=== PATIENT | female | born 1950 | race Caucasian/White ===

== ENCOUNTER 2017-05-11 00:44 | Observation (INO) | payer OTHER, MEDICARE ==
[~2017-05-11] VITALS: Ht 170.2 cm; Wt 98.9 kg
[~2017-05-11 00:44] MED LIST: ALTACE10 M1 PO; AMIODARONE200 MG PO; COUMADIN 5 MG TA5 MG PO; DOXAZOSIN2 MG PO; HYDRALAZINE10 MG PO; METOPROLOL SUCC50 M1 PO; SYNTHROID0.088 MG PO
--- NOTE | 2017-05-11 00:56 | ED NEURO DEFICIT/STROKE ---
History of Present Illness General Chief Complaint: General Adult Stated Complaint: BP HIGH, LEFT ARM AND FACE NUMBNESS Source: patient Exam Limitations: no limitations Vital Signs & Intake/Output Vital Signs & Intake/Output Vital Signs Date Time Temp Pulse Resp B/P B/P Pulse O2 O2 Flow FiO2 Mean Ox Delivery Rate 05/11 337 98.3 67 20 156/74 96 Room Air 05/11 0118 87 18 162/72 100 Room Air 05/11 0117 96.1 87 18 162/72 05/11 0100 96.1 100 18 220/74 100 Room Air Allergies Coded Allergies: No Known Allergies (05/11/17) Reconcile Medications Amiodarone Hydrochloride (Amiodarone) 200 MG TAB 0.5 TAB PO DAILY AFIB ( Reported) Doxazosin Mesylate 2 MG TABLET 1 TAB PO DAILY QHS (Reported) HYDRALAZINE HCL (Hydralazine) 10 MG TAB 1 TAB PO BID PRN HIGH BLOOD PRESSURE Levothyroxine Sodium (Synthroid) 0.088 MG TAB 0.088 MG PO DAILY AC THYROID ( Reported) Metoprolol Succinate (Metoprolol Succinate XL) 50 MG TAB.ER.24H 1 TAB PO DAILY RATE CONTROL (Reported) Ramipril (Altace) 10 MG CAPSULE 1 CAP PO DAILY HTN (Reported) Warfarin Sodium (Coumadin) 5 MG TAB 1 TAB PO DAILY ATRIAL FIB Triage Nurses Notes Reviewed? yes Onset: Abrupt Duration: hour(s): (few) Timing: single episode today Severity: mild, moderate Altered Sensations: LUE, LLE, left facial Associated Symptoms: numbness in legs/feet, back pain, palpitations, HPI: A 67-year-old female with history of hypertension, A. fib status post multiple cardioversions on Eliquis and flecanide who presents to the ER from home for chief complaint of palpitations which began a few hours ago while lying down to go to bed. She felt a pressure in her back and then a pressure in the front of her chest. She measured her BP to be 240/119 and took 2 25 mg of hydralazine. Patient then started to feel numbness and tingling in her left face arm and leg which concerned her and then she woke her to bring her to the ER. No blurred vision. Palpitations have gotten somewhat better but patient states that she feels shaky all over. Her last cardioversion was in 2017. Patient states that she's had a few episodes of A. fib since then. Most recently last into Thursday she felt that her rhythm went into A. fib and then converted back to sinus rhythm. She has been on multiple blood pressure Medications in the past but is currently only taking lisinopril. She has been following up with her senior design engineering specialist office in [place] but recently her senior design engineering specialist at group Dr. Maharaj. 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 Patient denies any current chest pain. She does feel slightly anxious. She has episodes of fluctuant and blood pressure in the past. Past History Travel History Traveled to [facility] past 21 day No Medical History Any Pertinent Medical History? see below for history Neurological: NONE EENT: NONE Cardiovascular: AFIB (STATUS POST CARDIOVERSION IN j), hypertension, hyperlipidemia Respiratory: NONE Gastrointestinal: NONE Hepatic: NONE Renal: NONE Musculoskeletal: NONE Psychiatric: NONE Endocrine: hypothyroidism Blood Disorders: NONE Cancer(s): NONE DRY MOLDER/Reproductive: NONE Surgical History Surgical History: appendectomy, cholecystectomy, , LEFT SHOULDER GROWTH REMOVAL, CARDIAC ABLATION X 2 Psychosocial History What is your primary language Qatari Tobacco Use: Never used ETOH Use: denies use Family History Hx Contributory? No Review of Systems Review of Systems Constitutional: Denies: chills, fever. EENTM: Reports: no symptoms. Respiratory: Denies: cough, short of breath, sputum production. Cardiovascular: Reports: palpitations. Denies: chest pain. GI: Reports: no symptoms. Genitourinary: Reports: no symptoms. Musculoskeletal: Reports: back pain. Skin: Reports: no symptoms. Neurological/Psychological: Reports: headache, numbness, tingling. Hematologic/Endocrine: Denies: bruising, bleeding, polyuria, polydipsia. Immunologic/Allergic: Denies: splenectomy. All Other Systems: Reviewed and Negative Physical Exam Physical Exam General Appearance: well developed/nourished, alert, awake, anxious, mild distress, moderate distress, obese Head: atraumatic, normal appearance Eyes: Bilateral: normal appearance, PERRL, EOMI. Ears, Nose, Throat: normal ENT inspection, hearing grossly normal Neck: normal inspection, supple, full range of motion Respiratory: normal breath sounds, chest non-tender, no respiratory distress Cardiovascular: regular rate/rhythm, normal peripheral pulses Peripheral Pulses: 3+ radial (R), 3+ radial (L) Gastrointestinal: normal bowel sounds, soft, non-tender Extremities: TRACE B/L PEDAL EDEMA Psychiatric: awake, alert, oriented x 3 Cranial Nerves: normal hearing, normal speech, PERRL Coordination/Gait: normal gait Motor/Sensory: no motor/sensory deficits Skin: intact, normal color, warm/dry Core Measures CVA/TIA Diagnosis: No Sepsis Present: No Sepsis Focused Exam Completed? No Progress Differential Diagnosis: intracranial Hem., stroke, HYPERTENSIVE URGENCY, HYPERTENSIVE CRISIS, AORTIC DISSECTION Plan of Care: Orders Procedure Date/time Status BASIC ELECTROLYTES PLUS BUN&CR 05/12 0500 Active Heart Healthy Diet 05/11 B Active CBC WITHOUT DIFFERENTIAL 05/11 06 Active Saline Lock 05/11 033 Active Pathway - chart 05/11 033 Active House Staff 05/11 0335 Active Patient Data 05/[address] in observation 05/11 0303 Active ED Holding Orders 05/11 0303 Active Vital Signs 05/11 0303 Active Code Status 05/11 0303 Active Telemetry/Assistant Professor Of Theater 05/11 0054 Active TROPONIN LEVEL 05/11 0054 Complete PARTIAL THROMBOPLASTIN TIME 05/11 0054 Complete PROTHROMBIN TIME 05/11 0054 Complete LACTIC ACID 05/11 0054 Complete COMPREHENSIVE METABOLIC PANEL 05/11 0054 Complete CBC WITHOUT DIFFERENTIAL 05/11 0054 Complete EKG 05/11 0046 Active VTE Mechanical Prophylaxis 05/11 UNK Active Hemoccult 05/11 UNK Active Current Medications Sig/Bear Start time Last Medication Dose Stop Time Status Admin Diltiazem HCl 20 MG ONCE ONE 05/11 011 CAN (Cardizem) 05/11 0116 Laboratory Tests 05/11/17 0106: Anion Gap 10, Estimated GFR > 60, BUN/Creatinine Ratio 18.9, Glucose 119 H, Lactic Acid 1.1, Calcium 9.4, Total Bilirubin 0.8, AST 20, ALT 33, Alkaline Phosphatase 61, Troponin I < 0.01, Total Protein 6.6, Albumin 4.0, Globulin 2.6, Albumin/Globulin Ratio 1.5, PT 13.2 H, INR 1.21 H, APTT 32, CBC w Diff NO MAN DIFF REQ, RBC 4.37, MCV 86.3, MCH 28.8, MCHC 33.4, RDW 12.8, MPV 9.3, Gran % 59.3, Lymphocytes % 29.4, Monocytes % 8.7, Eosinophils % 2.2, Basophils % 0.4, Absolute Granulocytes 4.0, Absolute Lymphocytes 2.0, Absolute Monocytes 0.6, Absolute Eosinophils 0.1, Absolute Basophils 0 3 AM IMPROVED AFTER IV CARDIZEM. CT NEGATIVE, FIRST TROPONIN NEGATIVE. PATIENT ON BID ELIQUIS. D/W DR BALLESTEROS, WILL PLACE ON TELEMETRY. Diagnostic Imaging: Viewed by Me: CT Scan. Discussed w/RAD: CT Scan. Radiology Impression: PATIENT: TONY HARRELL PRESENT AGE: 67 PATIENT ACCOUNT NO: [id number] : 49 LOCATION: ER ORDERING PHYSICIAN: Deborah Perez MD SERVICE DATE: 05/11/17 EXAM TYPE: CAT - CT HEAD WO IV CONTRAST EXAMINATION: CT HEAD WITHOUT CONTRAST CLINICAL INFORMATION: Headache, left-sided numbness, hypertensive COMPARISON: 05/09/2014 TECHNIQUE: Contiguous axial imaging was performed from the skull base to vertex without intravenous administration of contrast. DLP: 610.96 mGy-cm FINDINGS: There is no evidence of acute intracranial hemorrhage or territorial infarction. No abnormal mass effect or midline shift is seen. Gonzalez to white matter differentiation is well preserved. No extra-axial fluid collections are identified. The ventricles are normal in size. There is a redemonstrated small calcification along the lateral aspect of the right middle temporal lobe, which may reflect an exostosis. The osseous structures and soft tissues are normal. The mastoid air cells and visualized portions of the paranasal sinuses are well aerated. IMPRESSION: No acute intracranial pathology. DICTATED BY: Amarjit Herrera MD DATE/TIME DICTATED:05/11/17242 WIG SALES CONSULTANT:BENITO DATE/TIME TRANSCRIBED:05/11/17242 CONFIDENTIAL, DO NOT COPY WITHOUT APPROPRIATE AUTHORIZATION. <Electronically signed in Other Vendor System> SIGNED BY: Amarjit Herrera MD 05/11/17249, PATIENT: TONY HARRELL PRESENT AGE: 67 PATIENT ACCOUNT NO: [id number] : 49 LOCATION: ER ORDERING PHYSICIAN: Deborah Perez MD SERVICE DATE: 05/11/17 EXAM TYPE: CAT - CTA CHEST-AORTIC DISSECTION EXAMINATION: CT ANGIOGRAM OF THE CHEST INDICATION: Back pain, severe hypertension COMPARISON: None TECHNIQUE: Initial noncontrast CT of the chest was performed. 93 mL Optiray 320 IV contrast was then administered. Multidetector helical imaging was performed through the chest per CTA protocol. Coronal, sagittal, and MIP images of the chest were created. DLP: 980 mGy-cm FINDINGS: No evidence of aortic intramural hematoma on the precontrast series. Following contrast administration, there is no evidence of aortic dissection. The thoracic aorta appears normal in caliber. There is mild scattered calcification along the aorta. No regions of pulmonary consolidation bilaterally. There is minimal bibasilar atelectasis. Tiny nodules in the right upper lobe on image 70/481 and along the right major fissure on image 181/481 appear calcified, favoring granulomas. No pneumothorax or pleural effusion. The visualized thyroid gland is grossly unremarkable. There are subcentimeter mediastinal lymph nodes within the range of normal variation. Cardiac size is at the upper limits of normal. No pericardial effusion. The main pulmonary artery appears dilated, measuring approximately 3.4 cm in diameter. No central pulmonary embolus is seen. No axillary lymphadenopathy is present. Patient is status post cholecystectomy. No acute findings are identified in the visualized upper abdomen. Degenerative changes are noted in the spine. IMPRESSION: 1. No evidence of aortic dissection. 2. Dilated main pulmonary artery, suggesting pulmonary artery hypertension. DICTATED BY: Amarjit Herrera MD DATE/TIME DICTATED:05/11/17246 WIG SALES CONSULTANT:BENITO DATE/TIME TRANSCRIBED:246 CONFIDENTIAL, DO NOT COPY WITHOUT APPROPRIATE AUTHORIZATION. < Electronically signed in Other Vendor System> SIGNED BY: Amarjit Herrera MD 05/11/17 0300 Initial ED EKG: NSR, LVH Rhythm Strip: normal sinus rhythm Departure Departure Time of Disposition: 301 Disposition: STILL A PATIENT Condition: Stable Clinical Impression Primary Impression: Hypertensive urgency Secondary Impressions: Chest pain at rest Referrals: Angela CASAREZ,Isabel Savage (PCP/Family) Departure Forms: Customer Survey General Discharge Information Observation Note Spoke With: Blue Ballesteros MD Physician Advisor Notified: JULIO DÍAZ DO Place Patient In: Non-ED OBS Care Area Rationale for Observation: My rational for observation is as follows [TELE MONITOR, SERIAL EKG/TROPONIN, CARDIOLOGY EVALUATION, ECHOCARDIOGRAM, BLOOD PRESSURE CONTROL. Critical Care Note Critical Care Note Critical Care Time: 30-74 min
[2017-05-11 01:22] LABS: ABSOLUTE BASOPHIL COUNT 0 /CUMM (0.0-0.2); ABSOLUTE EOSINOPHIL COUNT 0.1 /CUMM (0.0-0.7); ABSOLUTE MONOCYTE COUNT 0.6 /CUMM (0.10-0.60); BASOPHIL % 0.4 % (0.0-2.0); EOSINOPHIL % 2.2 % (0-5); GRANULOCYTE % 59.3 % (42.2-75.2); HEMATOCRIT 37.7 % (37-47); MEAN CORPUSCULAR HGB 28.8 PG (27.0-31.0); MEAN CORPUSCULAR HGB CONC 33.4 G/DL (33.0-37.0); MEAN CORPUSCULAR VOLUME 86.3 FL (81.0-99.0); MEAN PLATELET VOLUME 9.3 FL (7.4-10.4); PLATELET COUNT 141 /CUMM (130-400); RBC DISTRIBUTION WIDTH 12.8 % (11.5-14.5); RED BLOOD CELL CT 4.37 /CUMM (4.20-5.40); WHITE BLOOD CELL COUNT 6.7 /CUMM (4.8-10.8)
[2017-05-11 01:28] LABS: PT 13.2 SEC (9.4-12.5); PTT 32 SEC (25-37)
--- NOTE | 2017-05-11 02:50 | CT SCAN REPORT ---
EXAMINATION: CT HEAD WITHOUT CONTRAST CLINICAL INFORMATION: Headache, left-sided numbness, hypertensive COMPARISON: 05/09/2014 TECHNIQUE: Contiguous axial imaging was performed from the skull base to vertex without intravenous administration of contrast. DLP: 610.96 mGy-cm FINDINGS: There is no evidence of acute intracranial hemorrhage or territorial infarction. No abnormal mass effect or midline shift is seen. Gonzalez to white matter differentiation is well preserved. No extra-axial fluid collections are identified. The ventricles are normal in size. There is a redemonstrated small calcification along the lateral aspect of the right middle temporal lobe, which may reflect an exostosis. The osseous structures and soft tissues are normal. The mastoid air cells and visualized portions of the paranasal sinuses are well aerated. IMPRESSION: No acute intracranial pathology.
--- NOTE | 2017-05-11 03:00 | CT SCAN REPORT ---
EXAMINATION: CT ANGIOGRAM OF THE CHEST INDICATION: Back pain, severe hypertension COMPARISON: None TECHNIQUE: Initial noncontrast CT of the chest was performed. 93 mL Optiray 320 IV contrast was then administered. Multidetector helical imaging was performed through the chest per CTA protocol. Coronal, sagittal, and MIP images of the chest were created. DLP: 980 mGy-cm FINDINGS: No evidence of aortic intramural hematoma on the precontrast series. Following contrast administration, there is no evidence of aortic dissection. The thoracic aorta appears normal in caliber. There is mild scattered calcification along the aorta. No regions of pulmonary consolidation bilaterally. There is minimal bibasilar atelectasis. Tiny nodules in the right upper lobe on image 70/481 and along the right major fissure on image 181/481 appear calcified, favoring granulomas. No pneumothorax or pleural effusion. The visualized thyroid gland is grossly unremarkable. There are subcentimeter mediastinal lymph nodes within the range of normal variation. Cardiac size is at the upper limits of normal. No pericardial effusion. The main pulmonary artery appears dilated, measuring approximately 3.4 cm in diameter. No central pulmonary embolus is seen. No axillary lymphadenopathy is present. Patient is status post cholecystectomy. No acute findings are identified in the visualized upper abdomen. Degenerative changes are noted in the spine. IMPRESSION: 1. No evidence of aortic dissection. 2. Dilated main pulmonary artery, suggesting pulmonary artery hypertension.
--- NOTE | 2017-05-11 03:32 | History & Physical ---
Ben Velasco MD 05/11/17 0331: General Information and HPI MD Statement: I have seen and personally examined TONY HARRELL and documented this H&P. The patient is a 67 year old F who presented with a patient stated chief complaint of [left sided numbness and tingling]. Source of Information: patient, family Exam Limitations: no limitations History of Present Illness: Patient is a 67 y/o female with PMH of HTN, longstanding history of atrial fibrillation on eliquis and flecainide s/p two ablations (last in May 2016), s /p multiple cardioversions (3 between May 2016 to September 2016), vertigo (not on any medications) presenting this admission with left sided numbness and tingling. Patient reports that 4 days prior to admission at approximately 2:57AM she went into atrial fibrillation. Prior to that she has been in NSR since October 2016. Patient states that she has not been feeling well since then and has been monitoring her blood pressure which has been elevated. Patient states at that time she took metoprolol (she is not on this medication currently however had some extra pills from her previous prescription) due to elevated heart rate and blood pressure. Patient reports that 2 days prior to admission she converted back into normal sinus rhythm at which point her blood pressure fluctuated between 103/63 to 200s over 90s. Patient reports that she took hydralazine and doxazosin as needed as well as her standing dose of lisinopril. Patient reports that she has previously been on hydralazine and doxazosin and has extra pills from her previous prescriptions. Patient reports that on the evening of admission she had laid down in bed and started having palpitations. Reports she also started experiencing a constant burning sensation in the center of her chest that radiated to her back and left arm. Reports the symptoms lasted approximately 30 minutes. Patient denied any chest pain or pressure, shortness of breath, diaphoresis, nausea/vomiting. Patient took her blood pressure and reports that it was 249/119. Patient states that she took 50 mg of hydralazine. After this she reports having left-sided numbness and tingling that traveled up to her neck from her chest and down her left arm and leg. Patient reported feeling as though she was slurring her speech due to numbness around the left side of her mouth and tongue. Also reports dizziness, weakness, difficulty walking, blurry vision and per she was shaking. Over the past few days she reports having headache and sinus pressure. Patient states that she recently, approximately 2 weeks prior, had an upper respiratory infection with cough and congestion which resolved without antibiotics. Patient reports that she has previously been hospitalized at [facility] for possible TIA and hypertension approximately 5 years prior with similar symptoms. Patient notes that at that time she also was treated for Lyme disease. Patient has an extensive cardiac history with multiple ablations. The last ablation was done at [facility] in May 2016. Patient reports that between May and September 2016 she required 3 cardioversions. Reports that she has been in normal sinus rhythm since October 2016 up until the past few days prior to this admission. Patient is currently taking flecainide and Eliquis. Patient states her cementer hand is Dr. Maharaj at [facility] who no longer works at the practice and Dr. Guzman is her carpenters. Past medical history as above Past surgical history: Appendectomy, 3, cholecystectomy, right shoulder mass resection Social history: Patient lives with her , denies any recent sick contacts, denies alcohol, tobacco, or illicit drug use Family history: Father suddenly at the age of 63 patient is unsure if it was due to an ND, mother age 67 of stomach cancer, brother has a history of atrial fibrillation Medications: Eliquis, flecainide, lisinopril, levothyroxine Allergies: Denies any allergies to any medications Allergies/Medications Allergies: Coded Allergies: No Known Allergies (05/11/17) Past History Travel History Traveled to [place] past 21 day No Medical History Neurological: NONE EENT: NONE Cardiovascular: AFIB (STATUS POST CARDIOVERSION IN j), hypertension, hyperlipidemia Respiratory: NONE Gastrointestinal: NONE Hepatic: NONE Renal: NONE Musculoskeletal: NONE Psychiatric: NONE Endocrine: hypothyroidism Blood Disorders: NONE Cancer(s): NONE 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 EENTM: Reports: see HPI. Cardiovascular: Reports: see HPI. Respiratory: Denies: see HPI. GI: Reports: no symptoms. Genitourinary: Reports: no symptoms. Musculoskeletal: Reports: no symptoms. Skin: Reports: no symptoms. Neurological/Psychological: Reports: anxiety. Hematologic/Endocrine: Reports: no symptoms. All Other Systems: Reviewed and Negative Exam & Diagnostic Data Last 24 Hrs of Vital Signs/I&O Vital Signs Date Time Temp Pulse Resp B/P B/P Pulse O2 O2 Flow FiO2 Mean Ox Delivery Rate 03 0750 98 Room Air 03/05 0740 98.0 76 18 157/71 98 Room Air 03/05 0703 98.0 76 18 157/71 98 Room Air 03/05 0540 97.6 68 18 152/71 96 Room Air 03/05 0338 98.3 67 20 156/74 96 Room Air 03/05 0118 87 18 162/72 100 Room Air 03/05 0117 96.1 87 18 162/72 03/05 0100 96.1 100 18 220/74 100 Room Air Intake & Output 03/ 1600 03/05 0800 03/05 0000 Intake Total 880 Output Total Balance 880 Intake, Oral 880 Patient 218 lb Weight Weight Reported by Patient Measurement Method Physical Exam General Appearance Alert, Oriented X3, Cooperative, No Acute Distress Skin No Rashes Skin Temp/Moisture Exam: Warm/Dry HEENT Atraumatic, PERRLA, EOMI, Mucous Membr. moist/pink Cardiovascular Regular Rate, Normal S1, Normal S2 Lungs Clear to Auscultation, Normal Air Movement Abdomen Normal Bowel Sounds, Soft, No Tenderness Neurological Normal Speech, Strength at 5/5 X4 Ext, Sensation Intact, Cranial Nerves 3-12 NL, Reflexes 2+ Extremities No Clubbing, No Cyanosis, No Edema, Normal Pulses, No Tenderness/ Swelling Vascular Normal Pulses, Pulses Symmetrical Last 24 Hrs of Labs/Andres: Laboratory Tests 05/11/17 0106: Anion Gap 10, Estimated GFR > 60, BUN/Creatinine Ratio 18.9, Glucose 119 H, Lactic Acid 1.1, Calcium 9.4, Total Bilirubin 0.8, AST 20, ALT 33, Alkaline Phosphatase 61, Troponin I < 0.01, Total Protein 6.6, Albumin 4.0, Globulin 2.6, Albumin/Globulin Ratio 1.5, PT 13.2 H, INR 1.21 H, APTT 32, CBC w Diff NO MAN DIFF REQ, RBC 4.37, MCV 86.3, MCH 28.8, MCHC 33.4, RDW 12.8, MPV 9.3, Gran % 59.3, Lymphocytes % 29.4, Monocytes % 8.7, Eosinophils % 2.2, Basophils % 0.4, Absolute Granulocytes 4.0, Absolute Lymphocytes 2.0, Absolute Monocytes 0.6, Absolute Eosinophils 0.1, Absolute Basophils 0 Diagnostic Data EKG Results Sinus rhythm, heart rate 97, first-degree AV block Other Results CTA: 1. No evidence of aortic dissection. 2. Dilated main pulmonary artery, suggesting pulmonary artery hypertension. Head CT: No acute intracranial pathology. Assessment/Plan Assessment: Patient is a 67 y/o female with PMH of HTN, longstanding history of atrial fibrillation on eliquis and flecainide s/p two ablations (last in May 2016), s /p multiple cardioversions (3 between May 2016 to September 2016), vertigo (not on any medications) presenting this admission with left sided numbness and tingling left arm, left leg and left side of her face and tongue with slurred speech. Patient in the ED received 1 mg 1, Cardizem 10 mg IV 1 Assessment and plan: Patient is a 59-year-old female with long-standing history of atrial fibrillation requiring multiple cardioversions and ablations currently on antiarrhythmic and anticoagulation presenting this admission with hypertensive urgency versus emergency. Patient experienced burning chest pain which lasted approximately 30 minutes at which time she had taken her blood pressure which was 240/118. Patient had taken hydralazine after which she started experiencing neurological symptoms with left sided numbness and slurred speech which resolved prior to her admission. It is unclear if patient symptoms are secondary to the antihypertensive medication or hypertensive crisis causing an acute ischemic stroke. Patient had a CT which ruled out hemorrhagic stroke. Patient also has a history of atrial fibrillation and recently converted back to atrial fibrillation from normal sinus rhythm which may have contributed to her symptoms however patient is on anticoagulation and has converted back to normal sinus rhythm 2 days prior to admission. Patient received IV diltiazem 10 mg and lorazepam 1 mg in the ED with decrease in blood pressure from 220/74 to 162/72. Patient during interview had resolution of her symptoms except for a headache. Problems: 1. Hypertensive crisis 2. TIA, rule out stroke 3. Atrial fibrillation on Eliquis and flecainide 4. History of hypothyroidism Plan: Observe on telemetry Consult cardiology Consult neurology Carotid Doppler Echo Neuro checks every 4 hours Monitor blood pressure and vitals Serial EKG and troponin Aspirin 325 mg 1 Continue Eliquis 5 mg twice a day Continue flecainide 150 mg twice a day Continue lisinopril 20 mg twice a day Consider adding metoprolol to control blood pressure and heart rate Atorvastatin 80 mg daily Continue levothyroxine 88 g daily Tylenol PRN for headache CBC and BEP in a.m. PT/OT consult Speech and swallow evaluation Obtain records from [facility] in [place] (Humanities And Languages Professor: Dr. Maharaj, Matcher Offbearer: Dr. Guzman) Code: Full code DVT prophylaxis: On Eliquis Diet: Heart healthy As Ranked By This Provider Problem List: 1. Hypertensive urgency 2. Supratherapeutic INR Core Measures/Misc (11/23) Acute Coronary Syndrome ACS Diagnosis: No Congestive Heart Failure Congestive Heart Failure Diagnosis No Cerebrovascular Accident CVA/TIA Diagnosis: Yes NIH Stroke Scale: Total 0 Date Last Known Well: 05/10/17 Time Last Known Well: 2199 Symptom Start Date: 05/10/17 Symptom Start Time: 2199 Reason tPA not ordered Medical Contraindication (symptoms resolved) Swallow Evaluation Pass Current/Past Hx AFib/AFlutter Yes VTE (View Protocol) VTE Risk Factors Age>40 No Mechanical VTE Prophylaxis d/t N/A MechProphylax Ordered No VTE Pharm Prophylaxis d/t NA PharmProphylax ordered Sepsis (View protocol) Sepsis Present: No Collin CASAREZ, [facility] 05/11/17 0614: General Information and HPI Allergies/Medications Home Med list Apixaban (Eliquis) 5 MG TABLET 1 TAB PO BID A.FIB (Reported) Doxazosin Mesylate 4 MG TABLET 1 TAB PO DAILY PRN HIGH BP (Reported) Flecainide Acetate 150 MG TABLET 1 TAB PO BID A. FIB (Reported) Hydralazine HCl 50 MG TABLET 1 TAB PO TID PRN BP (Reported) Levothyroxine Sodium 88 MCG TABLET 1 TAB PO DAILY HYPOTHYROIDISIM (Reported) Lisinopril 20 MG TABLET 1 TAB PO BID HTN (Reported) Attending MD Review Statement Attending Statement Attending MD Statement: examined this patient, discuss w/resident/PA/VC++ DEVELOPER, agreed w/resident/PA/VC++ DEVELOPER, discussed with family, reviewed images, amended to note Attending Assessment/Plan: 67 yo F with h/o HTN, Afib s/p ablation and multiple cardioversions, on eliquis and flecainide, TIA, Lyme disease, anxiety, is here for evaluation of left sided numbness, tingling of face and tongue. Patient reports her symptoms started 5 days ago with severe palpitations (as if her heart was to come out of her chest) and she reports that she knew she went into Afib. She took metoprolol and felt better once she converted to SR. Over the next 2 days, BP remained uncontrolled and she took hydralazine which she uses as needed for hypertension. She noted frontal and periorbital pressure/ pounding headache with dizziness and attributed it to her vertigo. Today, as she was lying down to go to bed, she felt palpitations, checked her BP which was 240 /119, took 2 tabs of hydralazine. She then felt a burning sensation in her chest , left arm radiating to the back, followed by a feeling of tingling/ numbness to her left face, tongue, lip, arm and leg associated with difficulty walking. She also reports transient blurring of vision. She denies chest pain/ pressure, dyspnea, lightheadedness, nausea or diaphoresis. Of note, patient had a recent URI 2 weeks back and used OTC/ homeopathic medicines with some relief. She followed Dr. Bakari Maharaj ([facility]) and Dr. Guzman ([facility]). Dr. Maharaj is not with [facility] anymore, so patient is yet to see her new cementer hand. Patient has had a stress test 2 yrs ago, was apparently normal. Patient uses doxazosin and hydralazine as needed for HTN, and metoprolol as needed for palpitations. In the ER, patient received IV cardizem with improvement in her BP 220/74 --> 162/72. Her symptoms have improved. Vitals: afebrile, HR 68, BP 152/71, sats 96% RA. Exam as above. Labs unremarkable, troponin negative. EKG: sinus rhythm, first degree AV block, LAD, LVH, ?peaked T waves V3-6 (new). CTA chest: no aortic dissection, dilated main pulmonary artery suggesting pulmonary artery hypertension. Lung granulomas. Head CT: neg. Assessment and plan: 1. Hypertensive crisis 2. Transient ischemic attack 3. History of Afib with paroxysms of rapid ventricular response - 23 hour observation on Telemetry - Neurochecks Q4 - Goal SBP ~ 150-160's - Resume lisinopril and flecainide - ?consider addition of metoprolol on daily basis after discussion with cardiology to prevent paroxysms of RVR - Serial EKG and troponin to rule out ACS - Obtain Echo and Cardio consult - Give aspirin and high dose statin - Obtain carotid dopplers - Neuro consult - Check TSH, free T4, HbA1c, lipid panel - Lorazepam as needed for anxiety - PT/OT/ speech/ swallow eval - Obtain records from patient's cementer hand at [facility] [place] DVT ppx Eliquis. Full code. Observation Initial Note - I have personally examined TONY HARRELL on 05/11/17 at 0617. The disposition of TONY HARRELL is uncertain at this time and before a determination can be made, she requires a period of observation for the following reasons [Hypertensive crisis] Angel Cutler 05/11/17 0902: Resident Review Statement Resident Statement: examined this patient, discussed with network intern, agreed with network intern, discussed with family, reviewed EMR data (avail), discussed with nursing , reviewed images Other Findings: is a 67 yo lady with PMHx of A. fib s/p 2 on Eliquis presented to ED with a c/o elevated BP, chest pressure, (burning sensation) radiating to the back, Palpitation and transient episode of slureed speech and left arm and face numbness and tingling started last night, at home her BP was up to 200's/100's, at our ED the highest Bp was 220/74, period of slurred speech and numbness last for about 20 minutes and completely resolved. No neurodeficit on examination, aortic dissection, PE ruled out with CTA. Will admitt the patient under observation to tlemetry floor for TIA, hypertensive urgency, neurochecks, carotid doppler, echocardioram, neuro consult, cardiology consult, Aspirin, statin, will hold on BP medication except lisinopril will start from am, TSH, lipid panel, pt/ot, swallow eval, continue Eliquis for A.fib and DVT ppx, full code.
[2017-05-11] MEDS ORDERED: FLECAINIDE ACE150 M1 PO (04:03)
[2017-05-11] MEDS ORDERED: LISINOPRIL20 M1 PO (04:06)
[2017-05-11] MEDS ORDERED: ELIQUIS5 M1 PO (04:06)
[2017-05-11] MEDS ORDERED: LEVOTHYROXINE88 MCG PO (04:07)
[2017-05-11] MEDS ORDERED: DOXAZOSIN MESYLA4 M1 PO (04:11)
[2017-05-11] MEDS ORDERED: HYDRALAZINE HCL50 M1 PO (04:12)
[2017-05-11 06:16] LABS: ABSOLUTE BASOPHIL COUNT 0 /CUMM (0.0-0.2); ABSOLUTE EOSINOPHIL COUNT 0.1 /CUMM (0.0-0.7); ABSOLUTE GRANULOCYTE CT 4.9 /CUMM (1.4-6.5); ABSOLUTE LYMPH COUNT 1.3 /CUMM (1.2-3.4); ABSOLUTE MONOCYTE COUNT 0.5 /CUMM (0.10-0.60); BASOPHIL % 0.7 % (0.0-2.0); EOSINOPHIL % 0.8 % (0-5); GRANULOCYTE % 71.9 % (42.2-75.2); HEMATOCRIT 35.1 % (37-47); MEAN CORPUSCULAR HGB 29.4 PG (27.0-31.0); MEAN CORPUSCULAR HGB CONC 33.8 G/DL (33.0-37.0); MEAN CORPUSCULAR VOLUME 86.9 FL (81.0-99.0); MEAN PLATELET VOLUME 9.1 FL (7.4-10.4); PLATELET COUNT 138 /CUMM (130-400); RBC DISTRIBUTION WIDTH 12.9 % (11.5-14.5); RED BLOOD CELL CT 4.04 /CUMM (4.20-5.40); WHITE BLOOD CELL COUNT 6.9 /CUMM (4.8-10.8)
--- NOTE | 2017-05-11 07:28 | PN-Observation ---
Becky CASAREZ,[facility] 05/11/17 0720: Observation Note Observation Note _ I have personally examined TONY HARRELL. her disposition is uncertain at this time. Before a determination can be made, she requires continued observation for the following reasons [Left facial numbness]. Assessment/Plan Medical Assessment: The patient is a 67-year-old woman with PMH of HTN, longstanding history of atrial fibrillation on eliquis and flecainide s/p two ablations (last in May 2016), s/p multiple cardioversions (3 between May 2016 to September 2016), vertigo (not on any medications) who presented with intermittent palpitations and frontal headaches of 4 days duration with severely elevated blood pressure and left sided weakness, numbness, tingling and difficulty ambulation on the day of presentation. She is currently being evaluated for hypertensive urgency and suspected TIA. Her blood pressure was elevated to 220/74 mmHg on presentation and she received IV Cardizem 10 mg push with improvement in her blood pressure. At the present time she does not have any focal neurologic deficits and has no complaints. Her head CT was negative for any intracranial lesion or bleed and she had a CTA of her chest which did not show any aortic dissection. An echocardiogram and carotid ultrasound of her neck are pending at this time and she will be evaluated by a neurologist and gluer and wedger. The patient states that she is compliant on her medications including apixaban, lisinopril and flecainide. Her blood pressure is now better controlled and is 150/90 mmhg. If further workup and evaluation is negative, patient can be discharged to follow-up with gluer and wedger later today. Problem 1. Hypertensive crisis * Check 1 more EKG and troponin today * Cardiology consultation * Echocardiogram today * Continue by mouth lisinopril 20 mg twice a day * Can consider adding by mouth metoprolol for additional blood pressure control and to have better control paroxysms of rapid ventricular rate if okay by cardiology * Monitor blood pressure closely 2. TIA, rule out stroke * Patient's symptoms could be as a result of elevated blood pressure or a TIA or stroke * Continue neuro checks with NIH stroke scale every 4 hours * Will obtain carotid ultrasound * Neurology consult sent * Lipid panel this morning within acceptable limits * Follow-up hemoglobin A1c * Patient passed bedside swallow eval and has no dysphagia * No need for formal speech and swallow evaluation-order has been cancelled 3. Atrial fibrillation on Eliquis and flecainide * Continue anticoagulation with apixaban * Continue by mouth flecainide * Continue telemetry monitoring * Awaiting cardiology evaluation for possibly adding metoprolol for additional rate control for intermittent palpitations. 4. History of hypothyroidism * TSH is elevated at 4.78 * We'll increase Synthroid dose to 0.1 mg daily DVT prophylaxis: apixaban CODE STATUS: Full code Problem List: 1. Hypertensive urgency 2. Hypertensive crisis 3. Hypertension DVT/Prophylaxis: pharmacological Subjective Follow-up For: 1. Hypertensive urgency 2. Transient Left facial and upper limb numbness concerning for TIA Complaints: no complaints Subjective: Patient has no complaints this morning. She states that she no longer has palpitations at this time and denies chest pain, shortness of breath, lightheadedness, headaches, blurring of vision or numbness or weakness of any extremity. Review of Systems Constitutional: Denies: chills, fever, malaise. EENTM: Denies: blurred vision, double vision, visual changes, eye pain. Cardiovascular: Denies: chest pain, edema, palpitations, syncope. Respiratory: Denies: cough, short of breath. Gastrointestinal: Denies: abdominal pain, constipation, nausea, vomiting. Genitourinary: Denies: dysuria, frequency. Musculoskeletal: Denies: back pain, joint pain. Objective Last 24 Hrs of Vital Signs/I&O Vital Signs Date Time Temp Pulse Resp B/P B/P Pulse O2 O2 Flow FiO2 Mean Ox Delivery Rate / 0948 97.1 70 18 167/73 03/05 0750 98 Room Air 03/05 0740 98.0 76 18 157/71 98 Room Air 03/05 0703 98.0 76 18 157/71 98 Room Air 03/05 0540 97.6 68 18 152/71 96 Room Air 03/05 0338 98.3 67 20 156/74 96 Room Air 03/05 0118 87 18 162/72 100 Room Air 03/05 0117 96.1 87 18 162/72 03/05 0100 96.1 100 18 220/74 100 Room Air Intake & Output 03/05 1600 03/05 0800 03/05 0000 Intake Total 880 Output Total Balance 880 Intake, Oral 880 Patient 218 lb Weight Weight Reported by Patient Measurement Method Physical Exam General Appearance: Alert, Oriented X3, Cooperative, No Acute Distress Skin: No Rashes Skin Temp/Moisture Exam: Warm/Dry Sepsis Skin Exam (color): Normal for Ethnicity HEENT: Atraumatic, PERRLA, EOMI, Mucous Membr. moist/pink Neck: Supple, No JVD, No thryomegaly, +2 Carotid Pulse wo Bruit Lymphatic: Cervical nl Cardiovascular: Regular Rate, Normal S1, Normal S2, No Murmurs Lungs: Clear to Auscultation, Normal Air Movement Abdomen: Normal Bowel Sounds, Soft, No Tenderness, No Hepatospenomegaly, No Masses Neurological: Normal Speech, Strength at 5/5 X4 Ext, Normal Tone, Cranial Nerves 3-12 NL Extremities: No Edema, Normal Pulses Vascular: Normal Pulses, Pulses Symmetrical Current Medications: Current Medications Sig/Bear Start time Last Medication Dose Route Stop Time Status Admin Acetaminophen 0 .STK-MED ONE 05/11 0700 DC PO Acetaminophen 650 MG ONCE ONE 05/11 0645 DC 05/11 PO 05/11 0646 0703 Apixaban 5 MG BID 05/11 1000 AC 05/11 PO 0948 Aspirin 0 .STK-MED ONE 05/11 0540 DC PO Aspirin 325 MG ONCE ONE 05/11 0500 DC / PO 05/11 0501 0539 Atorvastatin Calcium 80 MG 1700 05/11 1700 AC PO Diltiazem HCl 10 MG ONCE ONE 05/11 0130 DC 05/11 IV PUSH 05/11 0131 0117 Diltiazem HCl 0 .STK-MED ONE 05/11 0116 DC .ROUTE Diltiazem HCl 20 MG ONCE ONE 05/11 0115 CAN IV 05/11 0116 Flecainide Acetate 150 MG BID 05/11 1000 AC 05/11 PO 0948 Levothyroxine Sodium 0.088 MG DAILY AC 05/11 0645 AC / PO 0703 Lisinopril 20 MG BID 05/11 1000 AC 05/11 PO 0948 Lorazepam 0 .STK-MED ONE 05/11 0117 DC .ROUTE Lorazepam 1 MG ONCE ONE 05/11 0115 DC / IV 05/11 0116 0117 Last 24 Hrs of Labs/Mics: Laboratory Tests 05/11/17 0547: Magnesium 2.0, Troponin I 0.10, Triglycerides 53, Cholesterol 168, LDL Cholesterol, Calc 94, HDL Cholesterol 64 H, Cholesterol/HDL Ratio 3, TSH 4.780 H, CBC w Diff NO MAN DIFF REQ, RBC 4.04 L, MCV 86.9, MCH 29.4, MCHC 33.8, RDW 12.9, MPV 9.1, Gran % 71.9, Lymphocytes % 19.1 L, Monocytes % 7.5, Eosinophils % 0.8, Basophils % 0.7, Absolute Granulocytes 4.9, Absolute Lymphocytes 1.3, Absolute Monocytes 0.5, Absolute Eosinophils 0.1, Absolute Basophils 0 05/11/17 0354: Lactic Acid Cancelled 05/11/17 0106: Anion Gap 10, Estimated GFR > 60, BUN/Creatinine Ratio 18.9, Glucose 119 H, Lactic Acid 1.1, Calcium 9.4, Total Bilirubin 0.8, AST 20, ALT 33, Alkaline Phosphatase 61, Troponin I < 0.01, Total Protein 6.6, Albumin 4.0, Globulin 2.6, Albumin/Globulin Ratio 1.5, PT 13.2 H, INR 1.21 H, APTT 32, CBC w Diff NO MAN DIFF REQ, RBC 4.37, MCV 86.3, MCH 28.8, MCHC 33.4, RDW 12.8, MPV 9.3, Gran % 59.3, Lymphocytes % 29.4, Monocytes % 8.7, Eosinophils % 2.2, Basophils % 0.4, Absolute Granulocytes 4.0, Absolute Lymphocytes 2.0, Absolute Monocytes 0.6, Absolute Eosinophils 0.1, Absolute Basophils 0 Nevin CASAREZ,[facility] 05/11/17 1422: Observation Note Observation Note _ I have personally examined TONY HARRELL. her disposition is uncertain at this time. Before a determination can be made, she requires continued observation for the following reasons -patient requires further monitoring of her heart rate and blood pressure to ensure adequate control.. Patient seen and examined. Resting comfortably not in any acute distress. Blood pressure has improved compared to presentation. Patient continues to complain of palpitations in the mouth. Denies chest pain. Denies shortness of breath. Denies headache or blurry vision. She reports that since her last ablation in October she has been doing well until a few days ago when she noted palpitations and felt that she had gone back into atrial fibrillation. She reports compliance with her medications at home. In addition to her lisinopril which he takes regularly, she is also on hydralazine and doxycycline as needed for elevated blood pressures. She is currently only on flecainide in addition to her anticoagulation therapy for her atrial fibrillation. She reports being on a beta-ender in the past but developed bradycardia with heart rates in the 40s following her cardiac ablation according to the patient. She has been taking a beta-ender therapy since then. On examination she has no focal neurologic deficit. Heart sounds are regular. Lungs are clear to auscultation bilaterally. She has no peripheral edema. Recommendations: -Continue lisinopril for blood pressure control. -Follow-up with the cardiology service regarding medications to maintain patient on for additional blood pressure control and possibly rate control as well. -Continue anticoagulation therapy. -TSH is mildly elevated suggesting inadequate dosing of levothyroxine. Increase dose to 100 mcg daily. Patient to follow-up with her primary care provider for repeat TSH in 4-6 weeks. -She has no neurologic deficits at present. No need at this time for further neurologic imaging.
[2017-05-11 07:40] VITALS: BP 157/71
--- NOTE | 2017-05-11 11:37 | ULTRASOUND REPORT ---
EXAMINATION: US DUPLEX CAROTID AND VERTEBRAL CLINICAL INFORMATION: 67-year-old female with TIA. COMPARISON: None TECHNIQUE: Real-time ultrasound and Doppler techniques (integrating B-mode 2D vascular images, Doppler spectral analysis and color flow Doppler imaging) were utilized to interrogate the extracranial carotid and vertebral arteries bilaterally. The degree of stenosis determined by criteria similar to NASCET. FINDINGS: No plaque is seen at the carotid bifurcations or within the internal carotid arteries. All velocities are within normal limits as follows: Right: The common carotid artery velocity is 106 cm/s. The internal carotid artery velocities are 63 cm/s systolic and 18 cm/s diastolic. The external carotid artery velocity is 128 cm/s. Left: The common carotid artery velocity is 118 cm/s. The internal carotid artery velocities are 100 cm/s systolic and 23 cm/s diastolic. The external carotid artery velocity is 87 cm/s. ADDITIONAL FINDINGS: 1. The vertebral arteries show antegrade flow. 2. The external carotid arteries appear normal. IMPRESSION: No evidence of a hemodynamically significant stenosis involving the internal carotid arteries.
--- NOTE | 2017-05-11 18:12 | Cons- Cardiology ---
General Information and HPI Consulting Request Date of Consult: 05/11/17 Requested By: Nevin CASAREZ,Serge History of Present Illness: Ms. Garcia is a 67 year old female with history of hypertension and atrial fibrillation. She is status post two atrial fibrillation ablations with the last occuring in May of 2016. Despite this procedure the patient has had multiple bouts of atrial fibrillation with increased heart rate with three DC cardioversions to treat this problem. She has been in stable sinus rhythm since this past October and is on flecainide to help maintain a sinus rhythm. In consideration of her paroxysmal atrial fibrillation she is also on Eliquis for stroke prophylaxis. Beginning a few days ago, this patient had a recurrent bout of atrial fibrillation with rapid heart rate which spontaneously returned to a sinus rhythm. Last evening Nadege noted a strong and fast heartbeat which she did not believe to be atrial fibrillation. It was accompanied by a numb sensation with tingling in her left face and left arm. She felt like she had slurred speech, dizziness, weakness, difficulty walking, blurry vision and, per , she was shaking. She also had a mild chest burning that radiated toward her back and left arm. There was no associated nausea, vomiting or diaphoresis. In the ER the patient was noted to be in sinus rhythm but was very hypertensive and the patient reports that she had a BP of 249/119. She feels improved at this time. Typically this patient is without any shortness of breath unless she is in atrial fibrillation. The patient took and extra beta ender, hydralazine and doxazosin which were left over to treat her hypertension. Dr. 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 Allergies/Medications Allergies: Coded Allergies: No Known Allergies (05/11/17) Home Med List: Apixaban (Eliquis) 5 MG TABLET 1 TAB PO BID A.FIB (Reported) Doxazosin Mesylate 4 MG TABLET 1 TAB PO DAILY PRN HIGH BP (Reported) Flecainide Acetate 150 MG TABLET 1 TAB PO BID A. FIB (Reported) Hydralazine HCl 50 MG TABLET 1 TAB PO TID PRN BP (Reported) Levothyroxine Sodium 88 MCG TABLET 1 TAB PO DAILY HYPOTHYROIDISIM (Reported) Lisinopril 20 MG TABLET 1 TAB PO BID HTN (Reported) Review of Systems Review of Systems: * headache and recent cold symptoms Past History Travel History Traveled to [place] past 21 day No Medical History Neurological: NONE EENT: NONE Cardiovascular: AFIB (STATUS POST CARDIOVERSION IN j), hypertension, hyperlipidemia, (PT DENIES HX OF >CHOL) Respiratory: NONE Gastrointestinal: NONE Hepatic: NONE Renal: NONE Musculoskeletal: NONE Psychiatric: NONE Endocrine: hypothyroidism Blood Disorders: NONE Cancer(s): NONE 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 Brother: atrial fibrillation Father: suddenly from heart disease Psychosocial History Where Do You Live? Home Services at Home: None Smoking Status: Never Smoked ETOH Use: denies use Illicit Drug Use: denies illicit drug use Exam & Diagnostic Data Vital Signs and I&O Vital Signs Date Time Temp Pulse Resp B/P B/P Pulse O2 O2 Flow FiO2 Mean Ox Delivery Rate / 1700 98.3 56 20 151/70 98 Room Air 03/05 1349 97.9 68 18 172/69 99 Room Air 03/05 0948 97.1 70 18 167/73 03/05 0750 98 Room Air 03/05 0740 98.0 76 18 157/71 98 Room Air 03/05 0703 98.0 76 18 157/71 98 Room Air 03/05 0540 97.6 68 18 152/71 96 Room Air 03/05 0338 98.3 67 20 156/74 96 Room Air 03/05 0118 87 18 162/72 100 Room Air 03/05 0117 96.1 87 18 162/72 03/05 0100 96.1 100 18 220/74 100 Room Air Intake & Output 03/ 1600 03/05 0800 03/05 0000 03/04 1600 03/04 0800 03/04 0000 Intake Total 360 880 Output Total 3 Balance 357 880 Intake, Oral 360 880 Output, Urine 3 Patient 218 lb Weight Weight Reported by Patient Measurement Method Physical Exam: General: WD/Overweight female in NAD; alert and oriented x 3 HEENT: NC/AT, PERRL, EOMI Neck: no JVD, no carotid bruit heart: RRR w/o murmur Lungs: clear bilaterally ABdomen: soft, NT, +ve bowel sounds Extremities: no edema Assessment/Plan Assessment/Plan * Atrial fibrillation. This patient is comparatively well controlled and now has infrequent bouts of atrial fibrillation. She is on the maximum dose of flecainide which should be continues and other antiarrhythmics have been tried and were not successful. Her atrial fibrillation may well be exacerbated by poor control of her blood pressure which will need to be improved. Finally, this patient should continue on Eliquis for stroke prophylaxis. This patient may not have had a cardioembolic event although it cannot be completely excluded. She may have had a neurologic event due to her severe hypertensive excursion and perhaps from self treating her hypertension and dropping her pressure too rapidly. Check TFT's and an echocardiogram. * Hypertension. This patient has severe hypertension. Her blood pressure has come down but it is difficult to know what medications will control since she has taken left over medications on her own on a non-consistent basis. For now I would increase Lisinopril to 40mg daily and begin Nifedipine ER 30mg daily. Avoid PRN medications and try to keep patient at about 160mmHg systolic for the next 24 hours. * Neurologic. Again this patient may have experienced a TIA from too rapid a reduction in blood pressure, the severe hypertension itself or may have had a true cardioembolic event despite being on Eliquis. Continue Eliquis and consider an MRI. * Chest pain. In the setting of a severe hypertensive excursion this patient had chest discomfort that is suspicious for ischemia. Would control her blood pressure and then risk stratify with a treadmill nuclear stress test. Continue a statin, aspirin 81mg daily. If blood pressure allows we will consider adding a beta ender. Consult Acknowledgment - Thank you for your consult request.
[2017-05-11 18:55] VITALS: BP 150/84
--- NOTE | 2017-05-11 19:19 | ECHOCARDIOGRAM REPORT ---
TONY HARRELL Age: 67 : 1950 Gender: F Exam Date: 05/11/2017 11:28 Exam Location: ER Ht (in): 67 Wt (lb): 220 BSA: 2.21 BP: 159 / 71 Ordering Physician: Angel Chan MD Referring Physician: Angel Chan MD Technologist: Kuldip Barragan [facility] Room Number: 6 Indications: HYPERTENSION Rhythm: Sinus Technical Quality: fair FINDINGS Left Ventricle Normal size left ventricle. Mild concentric left ventricular hypertrophy. No obvious regional wall motion abnormalities. Normal left ventricular ejection fraction visually estimated at >60%. Restrictive filling pattern of the left ventricle for age (stage 3 diastolic dysfunction). Right Ventricle Normal right ventricular size and function. Right Atrium Normal right atrial size. Left Atrium Normal left atrial size. Mitral Valve Mitral valve mildly thickened. No mitral regurgitation. Aortic Valve Trileaflet aortic valve. Diffuse mild thickening of the aortic valve cusps with mildly reduced excursion. No hemodynamically significant aortic stenosis. Trace aortic regurgitation. Tricuspid Valve Structurally normal tricuspid valve. Trace tricuspid regurgitation. Pulmonic Valve Pulmonic valve not well visualized. No pulmonic regurgitation. Pericardium No pericardial effusion. Great Vessels Normal size aortic root. CONCLUSIONS Normal size left ventricle. Mild concentric left ventricular hypertrophy. Normal left ventricular ejection fraction visually estimated at > 60%. Restrictive filling pattern of the left ventricle for age (stage 3 diastolic dysfunction). Normal right ventricular size and function. Normal atrial size. Trace aortic regurgitation. Trace tricuspid regurgitation. Ej Brock M.D. (Electronically Signed) Final Date: 11 May 2017 19:18 MEASUREMENTS (Male / Female) Normal Values 2D ECHO LV Diastolic Diameter PLAX 2.9 cm 4.2 - 5.9 / 3.9 - 5.3 cm LV Systolic Diameter PLAX 4.3 cm 2.1 - 4.0 cm LV Fractional Shortening PLAX -51.4 % 25 - 46 % LV Ejection Fraction 2D Teich -171.2 % IVS Systolic Thickness 1.3 cm LVPW Systolic Thickness 1.3 cm LVOT Diameter 1.8 cm Aortic Root Diameter 2.7 cm LA Systolic Diameter LX 3.1 cm 3.0 - 4.0 / 2.7 - 3.8 cm DOPPLER AV Peak Velocity 194.0 cm/s AV Peak Gradient 15.1 mmHg LVOT Peak Velocity 121.0 cm/s LVOT Peak Gradient 5.9 mmHg AV Area Cont Eq pk 1.7 cm
--- NOTE | 2017-05-11 19:35 | Patient Discharge Instructions ---
Discharge Instructions General Discharge Information You were seen/treated for: Severe elevation of blood pressure Transient left facial/limb tingling and numbness Special Instructions: 1. Follow up with your primary care provider within 1 week. 2. Follow up with your primary cardiologists at [facility] within 1 week of discharge. 3. Follow up with neurologist Dr. Hernandez within 1 week of discharge 4. Your levothyroxine dose has been increased. Repeat your TSH blood test in 4-6 weeks, around 06/15/17 and send results to your primary care provider to see if this medication dose should be adjusted again. Diet Continue normal diet: No Recommended Diet: Heart Healthy Activity Full Activity/No Limits: No Activity Self Limited: Yes Acute Coronary Syndrome Inclusion Criteria At DC or during hospital stay patient has or had the following: ACS DIAGNOSIS No Discharge Core Measures Meds if any: Prescribed or Continued at Discharge Meds if any: NOT Prescribed or Continued at Discharge Congestive Heart Failure Inclusion Criteria At DC or during hospital stay patient has or had the following: CHF DIAGNOSIS No Discharge Core Measures Meds if any: Prescribed or Continued at Discharge Meds if any: NOT Prescribed or Continued at Discharge Cerebrovascular accident Inclusion Criteria At DC or during hospital stay patient has or had the following: CVA/TIA Diagnosis No Discharge Core Measures Meds if any: Prescribed or Continued at Discharge Meds if any: NOT Prescribed or Continued at Discharge Venous thromboembolism Inclusion Criteria VTE Diagnosis No VTE Type NONE VTE Confirmed by (Test) NONE Discharge Core Measures - Per Current guidelines, there needs to be overlap - treatment for the first 5 days of Warfarin therapy. - If discharged on Warfarin prior to 5 days of - overlap therapy, the patient will need to be - assessed for post discharge needs including - *Post discharge parental anticoagulation - *Warfarin and/or parental anticoagulation education - *Follow up date to check INR post discharge At least 5 days overlap therapy as Inpatient No Meds if any: Prescribed or Continued at Discharge Note: Overlap Therapy is Warfarin and Anticoagulant Meds if any: NOT Prescribed or Continued at Discharge
[2017-05-11 22:00] VITALS: BP 148/78
[2017-05-12 07:01] VITALS: BP 174/94
[2017-05-12 07:53] VITALS: BP 178/90
--- NOTE | 2017-05-12 08:03 | PN-Observation ---
Becky CASAREZ,[facility] 05/12/17 0803: Observation Note Observation Note _ I have personally examined TONY HARRELL. her disposition is uncertain at this time. Before a determination can be made, she requires continued observation for the following reasons []. Assessment/Plan Medical Assessment: The patient is a 67-year-old woman with PMH of HTN, longstanding history of atrial fibrillation on eliquis and flecainide s/p two ablations (last in May 2016), s/p multiple cardioversions (3 between May 2016 to September 2016), vertigo (not on any medications) who presented with intermittent palpitations and frontal headaches of 4 days duration with severely elevated blood pressure and left sided weakness, numbness, tingling and difficulty ambulation on the day of presentation. She was evaluated for hypertensive urgency with transient left facial and limb numbness. Her blood pressure was elevated to 220/74 mmHg on presentation and she received IV Cardizem 10 mg push with improvement in her blood pressure. At the present time she does not have any focal neurologic deficits and has no complaints. Her head CT was negative for any intracranial lesion or bleed and she had a CTA of her chest which did not show any aortic dissection. Her blood pressure is now better controlled after adjustments to her medications. Patient can be discharged to follow-up with childcare provider. Problem 1. 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 Transient left facial tingling and numbness * Patient's symptoms were likely due to elevated blood pressure * No focal neurological signs or symptoms * Carotid ultrasound showed no evidence of a hemodynamically significant stenosis involving the internal carotid arteries * Neurology referral for outpatient follow up given * Lipid panel was within acceptable limits, however patient refused atorvastatin given to her yesterday * Hemoglobin A1c 5.5 3. Atrial fibrillation on Eliquis and flecainide * Continue anticoagulation with apixaban * Continue by mouth flecainide * Outpatient follow up with cardiology and electrophysiology 4. History of hypothyroidism * TSH was elevated at 4.78 * Synthroid dose has been increased to 0.1 mg daily * Repeat TSH in 4-6 weeks 5. Nasal congestion and vertigo * Start meclizine 12.5 mg TID PRN for vertigo * Will prescribe saine nasal spray on discharge DVT prophylaxis: apixaban CODE STATUS: Full code Problem List: 1. Hypertensive crisis 2. Left face and left arm tingling DVT/Prophylaxis: pharmacological Subjective Follow-up For: 1. Hypertensive urgency 2. Transient Left facial and upper limb numbness Complaints: Sinus congestion, Vertigo Tele-Events Since Last Visit: Sinus rhythm, sinus bradycardia, heart rate 41-86 bpm. Bradycardia to 40 bpm @ 2 am Subjective: Patient complaints of nasal congestion and sinus pressure associated with vertigo this morning which she has had previously and for which she has tried different decongestants and therapies including massage therapy. She states that she no longer has palpitations at this time and denies chest pain, shortness of breath, headaches, blurring of vision or numbness or weakness of any extremity. Review of Systems Constitutional: Reports: see HPI. Denies: chills, fever. EENTM: Reports: nasal congestion. Denies: throat pain. Objective Last 24 Hrs of Vital Signs/I&O Vital Signs Date Time Temp Pulse Resp B/P B/P Pulse O2 O2 Flow FiO2 Mean Ox Delivery Rate 05/12 0957 61 148/74 / 0759 51 178/90 / 0753 51 178/90 05/12 0701 98.4 55 20 174/94 97 Room Air Physical Exam General Appearance: Alert, Oriented X3, Cooperative, No Acute Distress Skin: No Rashes Skin Temp/Moisture Exam: Warm/Dry Sepsis Skin Exam (color): Normal for Ethnicity HEENT: Atraumatic, PERRLA, EOMI, Mucous Membr. moist/pink Neck: Supple, No JVD, No thryomegaly, +2 Carotid Pulse wo Bruit Lymphatic: Cervical nl Cardiovascular: Regular Rate, Normal S1, Normal S2, No Murmurs Lungs: Clear to Auscultation, Normal Air Movement Abdomen: Normal Bowel Sounds, Soft, No Tenderness, No Hepatospenomegaly, No Masses Neurological: Normal Speech, Strength at 5/5 X4 Ext, Normal Tone, Sensation Intact, Cranial Nerves 3-12 NL Extremities: No Edema, Normal Pulses, No Tenderness/Swelling Vascular: Normal Pulses, Pulses Symmetrical Current Medications: Current Medications Sig/Bear Start time Last Medication Dose Route Stop Time Status Admin Apixaban 5 MG BID 05/11 1000 DCD 05/12 PO 0956 Atorvastatin Calcium 80 MG 1700 05/11 1700 DCD PO Flecainide Acetate 150 MG BID 05/11 1000 DCD 05/12 PO 0956 Levothyroxine Sodium 0.1 MG DAILY AC 05/12 0700 DCD 05/12 PO 0708 Lisinopril 40 MG DAILY 05/12 1000 DCD 05/12 PO 0759 Meclizine HCl 12.5 MG TID PRN 05/12 0915 DCD PO Melatonin 5 MG ONCE ONE 05/12 0115 DC 05/12 PO 05/12 0116 0145 Nifedipine 30 MG DAILY 05/12 1000 DCD 05/12 PO 0957 Last 24 Hrs of Labs/Mics: Laboratory Tests 05/12/17 1015: CBC w Diff NO MAN DIFF REQ, RBC 4.19 L, MCV 85.9, MCH 29.1, MCHC 33.8, RDW 13.0 , MPV 9.3, Gran % 72.0, Lymphocytes % 18.2 L, Monocytes % 7.5, Eosinophils % 1.8, Basophils % 0.5, Absolute Granulocytes 3.9, Absolute Lymphocytes 1.0 L, Absolute Monocytes 0.4, Absolute Eosinophils 0.1, Absolute Basophils 0 05/12/17 0645: Anion Gap 7, Estimated GFR > 60, BUN/Creatinine Ratio 16.7 Serge Rooney MD 05/12/17 1012: Observation Note Observation Note _ I have personally examined TONY HARRELL. her disposition is uncertain at this time. Before a determination can be made, she requires continued observation for the following reasons []. Patient seen and examined. Resting comfortably and not in any acute distress. No issues overnight. On telemetry overnight she was occasionally bradycardic at night down into the 40s. She is asymptomatic. Blood pressure has improved this morning. She is currently 148/74. Cardiology follow-up yesterday appreciated. On examination heart sounds are regular. She is in sinus rhythm. Lungs are clear bilaterally. Abdomen is soft and nontender. She has no peripheral edema. Recommendations: -Blood pressure has improved on the regimen of lisinopril 40 mg daily and nifedipine 30 mg daily. Patient has been instructed to remain on this regimen and to avoid taking as needed blood pressure medications. She has been advised to measure her blood pressure twice daily and follow-up with her primary care provider with the results at the end of the week. -Cardiology service is recommending continuation of flecainide. She is predominantly in sinus rhythm. High blood pressure may have been the trigger for her atrial fibrillation on and off. She is a candidate for rate control medications at present as she is bradycardic down into the 40s-50s off any rate control medications. -She complains of mild dizziness this morning. She reports that this is chronic for her because on and off. She reports that she developed the symptoms occasionally with position change. We will start her on meclizine to continue as an outpatient. -On presentation she complained of tingling of the left side of face and left arm. CT scan shows no acute pathology. Symptoms are likely related to her significantly elevated blood pressure. She has been advised to follow-up with the neurology service as an outpatient. -She had a slight downward trending the hemoglobin. She denies any black or bloody stools. Repeat hemoglobin level this morning to assure that he is stable. -She is medically stable at this time to be discharged home today if her hemoglobin level is stable . Objective Last 24 Hrs of Vital Signs/I&O Vital Signs Date Time Temp Pulse Resp B/P B/P Pulse O2 O2 Flow FiO2 Mean Ox Delivery Rate 05/12 0957 61 148/74 / 0759 51 178/90 03/ 0753 51 178/90 03/06 0701 98.4 55 20 174/94 97 Room Air 03/05 2200 98.2 54 18 148/78 97 Room Air 03/05 1855 98.2 67 20 150/84 95 Room Air 03/05 1700 98.3 56 20 151/70 98 Room Air 03/05 1349 97.9 68 18 172/69 99 Room Air Intake & Output /06 1600 03/06 0800 03/ 0000 Intake Total 360 200 Output Total Balance 360 200 Intake, Oral 360 200 Patient 98.883 kg Weight
[2017-05-12] MEDS ORDERED: NIFEDIPINE ER30 M2 PO ×2 (09:07→12:08)
[2017-05-12] MEDS ORDERED: LISINOPRIL40 M1 PO ×2 (09:07→12:08)
[2017-05-12 09:57] VITALS: BP 148/74
[2017-05-12] MEDS ORDERED: LEVOTHYROXINE100 MC1 PO ×2 (10:01→12:08)
[2017-05-12] MEDS ORDERED: NASA MIST SALIN75 ML NASB ×2 (10:11→12:08)
[2017-05-12] MEDS ORDERED: MECLIZINE HCL12.5 M1 PO ×2 (10:11→12:08)
[2017-05-12 10:48] LABS: ABSOLUTE BASOPHIL COUNT 0 /CUMM (0.0-0.2); ABSOLUTE EOSINOPHIL COUNT 0.1 /CUMM (0.0-0.7); ABSOLUTE GRANULOCYTE CT 3.9 /CUMM (1.4-6.5); ABSOLUTE MONOCYTE COUNT 0.4 /CUMM (0.10-0.60); BASOPHIL % 0.5 % (0.0-2.0); EOSINOPHIL % 1.8 % (0-5); MEAN CORPUSCULAR HGB 29.1 PG (27.0-31.0); MEAN CORPUSCULAR HGB CONC 33.8 G/DL (33.0-37.0); MEAN CORPUSCULAR VOLUME 85.9 FL (81.0-99.0); MEAN PLATELET VOLUME 9.3 FL (7.4-10.4); PLATELET COUNT 137 /CUMM (130-400); RED BLOOD CELL CT 4.19 /CUMM (4.20-5.40); WHITE BLOOD CELL COUNT 5.4 /CUMM (4.8-10.8)
== END 2017-05-12 13:40 ==
LOC: ERH 00:44 → 1NO 03:03 → ERHI 03:03 → CANRESERV 15:39 → ENRESERV 15:39 → ENTRNSPT 17:53 → EDTRNSPTSTS 18:18 → EDTRNSPT 18:18 → 1NO 18:41 → CMPTRNSPT 18:50 → ENPENDDIS 05-12 12:16 → 1NO 05-12 13:40
PROVIDERS: Emergency Medicine; Internal Medicine; Student in an Organized Health Care Education/Training Program
DX: I16.0 Hypertensive urgency (principal); I48.91 Unspecified atrial fibrillation; Z79.01 Long term (current) use of anticoagulants; R20.0 Anesthesia of skin; M54.9 Dorsalgia, unspecified; R00.2 Palpitations; E78.5 Hyperlipidemia, unspecified; E03.9 Hypothyroidism, unspecified; R07.9 Chest pain, unspecified; Z79.899 Other long term (current) drug therapy
CPT/HCPCS: 6020; 36415; 82436; 93005; 93010; 93306; 96374; 96375; G0378